=== PATIENT | male | born 1980 | race African-American/Black ===

== ENCOUNTER 2018-09-20 12:01 | Emergency (ER) | payer BC, OTHER ==
[~2018-09-20] VITALS: Ht 170.2 cm; Wt 89.9 kg
[2018-09-20 12:11] VITALS: BP 113/46
== END 2018-09-20 13:44 | disposition home or self-care (01) ==
LOC: ED 13:38
DX: S83.91XA Sprain of unspecified site of right knee, initial encounter (principal); W01.0XXA Fall on same level from slipping, tripping and stumbling without subsequent striking against object, initial encounter; Y93.89 Activity, other specified; Y92.89 Other specified places as the place of occurrence of the external cause; Y99.8 Other external cause status
CPT/HCPCS: 29505; 29530; 99283